=== PATIENT | male | born 1985 | race Caucasian/White ===

== ENCOUNTER → 2023-03-07 15:42 | Outpatient (CLI) | payer BC, SELFPAY ==
--- NOTE | 2023-03-07 | DI.RAD.S_ITS ---
PROCEDURE: XR CHEST 2V INDICATIONS: ABNORMAL LEVELS TECHNIQUE: 2 views of the chest were acquired. COMPARISON: None. FINDINGS: Surgical changes and devices: None. Lungs and pleura: Lungs are clear. No pleural effusions or pneumothorax. Mediastinum: Mediastinal contours are normal. Heart size is normal. Bones and chest wall: No suspicious bony abnormalities. Soft tissues appear unremarkable. IMPRESSION: No acute process. Dictated by: Debora Miranda M.D. on 03/07/2023 at 16:34 Approved by: Debora Miranda M.D. on 03/07/2023 at 16:34
== END ==
PROVIDERS: PCP Registered Nurse; Referring Provider Registered Nurse; Visit Provider Registered Nurse
DX: R74.8 Abnormal levels of other serum enzymes (principal); M94.0 Chondrocostal junction syndrome [Tietze]
CPT/HCPCS: 71046

== ENCOUNTER → 2023-06-30 08:39 | Outpatient (CLI) | payer BC, SELFPAY ==
[2023-06-30 10:05] LABS: Semen Sperm Prescence Post-Vas Present (ABSENT)
== END ==
PROVIDERS: PCP Registered Nurse; Referring Provider Specialist; Visit Provider Specialist
DX: Z98.52 Vasectomy status (principal)
CPT/HCPCS: 89321

== ENCOUNTER → 2023-07-21 17:09 | Outpatient (CLI) | payer BC, SELFPAY ==
--- NOTE | 2023-07-21 | DI.RAD.S_ITS ---
PROCEDURE: XR ANKLE RT MIN 3V INDICATIONS: RT ANKLE PAIN TECHNIQUE: 3 views of the ankle were acquired. COMPARISON: None. FINDINGS: Bones: No fractures or dislocations. Ankle mortise is normally aligned. No suspicious bony lesions. Soft tissues: No tibiotalar joint effusion. Achilles tendon appears normal. IMPRESSION: No definite radiographic abnormality. If pain persists with conservative management, consider cross sectional imaging such as CT or MRI for further assessment. Dictated by: Spencer Pérez [facility] Interpreted: Danny Drew MD on 07/21/2023 at 19:51 Transcribed by: JASON on 07/22/2023 at 8:16 Approved by: Danny Drew M.D. on 07/22/2023 at 18:14
== END ==
PROVIDERS: PCP Registered Nurse; Referring Provider Registered Nurse; Visit Provider Registered Nurse
DX: M25.571 Pain in right ankle and joints of right foot (principal)
CPT/HCPCS: 73610

== ENCOUNTER → 2024-03-10 16:04 | Outpatient (ROUT) | payer BC, SELFPAY ==
[2024-03-10 16:19] LABS: Semen Sperm Prescence Post-Vas Absent (ABSENT)
== END ==
PROVIDERS: PCP Registered Nurse; Visit Provider Registered Nurse
DX: Z98.52 Vasectomy status (principal)
CPT/HCPCS: 89321

== ENCOUNTER 2024-05-28 06:46 | Day surgery (SDC) | payer BC, SELFPAY ==
[2024-05-28] MEDS: LACTATED RINGERS 1,000 ML 42 ML IV (07:10)
[2024-05-28 07:11] VITALS: BP 140/79; PULSE 75; RESP 18; TEMP 36.6; O2SAT 98
--- NOTE | 2024-05-28 07:44 | P.HP_ITS ---
History of Present Illness History of Present Illness Date Patient Seen: 05/28/24 Time Patient Seen: 07:44 Chief complaint: Dx Colonoscopy w/poss bx Narrative: Change in bowel habits, constant pressure to urgency. No family history for colon cancer or IBD [facility] Medical History Encounter for sterilization Sterilization consult History of depression Hx of essential hypertension Social History marital status: occupational status: employed Smoking Status: Current some day smoker alcohol intake: current during the past year weight has: remained stable caffeine: Yes Meds Home Medications and Allergies Home Medications Medication Instructions Recorded Confirmed Type pimecrolimus 1 % topical cream 1 applic topical BID 02/25/24 02/25/24 History sodium,potassium,mag sulfates 17.5 See Rx Instructions PO .COMPLEX 04/29/24 Rx gram-3.13 gram-1.6 gram oral soln #354 mL (Suprep Bowel Prep Kit) Allergies Allergy/AdvReac Type Severity Reaction Status Date / Time No Known Drug Allergies Allergy Unverified 02/25/24 11:28 Review of Systems Review of Systems ROS: Yes All systems reviewed with the patient and are negative except as otherwise documented Exam Vital Signs (past 8 hours): - 05/28/24 07:11 Temperature 98 F Pulse Rate 75 Respiratory Rate 18 Blood Pressure 140/79 Pulse Oximetry 98 Oxygen Delivery Method Room Air Oxygen Delivery Method Room Air Const General: cooperative, healthy appearing and comfortable Nutritional Appearance: average body habitus HENMT Head: normocephalic and atraumatic Eyes General: appearance normal, both eyes and all related structures Sclera: sclerae normal Neck Neck: trachea midline Chest Chest: normal inspection of the chest Resp Effort & Inspection: normal respiratory effort and able to speak in complete sentences Cardio Rate: regular rate Rhythm: regular rhythm GI Inspection: non-distended Palpation: soft Back/Spine/Pelvis Back: normal to inspection Skin General: no rashes or lesions noted Neuro Cognition: normal cognition Psych Mental Status: mental status grossly normal Judgment: judgment good Assessment & Plan Assessment & Plan narrative: Increased urgency Colonoscopy with anesthesia Time-Based Coding :: [TOTAL MINUTES] spent with patient and on the chart (including review of chart, obtaining history, exam, reviewing outside data, placing orders, documenting exam and treatment plan, and counseling patient) on [DATE].
--- NOTE | 2024-05-28 07:59 | PM.OP.COLON ---
Operative Date/Time/Diagnoses Date of procedure: 05/28/24 Time of procedure: 07:59 Pre-op diagnosis: Fecal urgency Post-op diagnosis: same Procedure & Clinicians Study performed: Colonoscopy with anesthesia Same procedure as scheduled: Yes Indications: Fecal urgency Surgeon: Celina Gore Procedure Notes Procedure in detail: Preop diagnosis: Fecal urgency Postop diagnosis: Same Operative procedure: Colonoscopy with anesthesia Surgeon: Jessica Gore MD Findings: Normal colonoscopy. No polyps, no diverticulosis. No masses her abnormalities in the rectum Procedure: Patient placed in lateral position. Rectal exam performed showing normal tone no masses. Colonoscope inserted into the rectum and advanced to ileocecal valve with minimal difficulty. Insufflation extraction scope including retroflex the rectum was performed. Impression: Normal colonoscopy. No polyps, no diverticulosis. No etiology for his fecal urgency Plan: Repeat colonoscopy in 10 years in accordance to colon cancer surveillance Specimen(s): none sent Complications: none Post-procedure Recommendations: Colonoscopy in 10 years Follow up: as needed Disposition: PACU
[2024-05-28 08:03] VITALS: BP 119/77; PULSE 79; RESP 14; TEMP 36.2; O2SAT 97
[2024-05-28 08:08] VITALS: BP 114/73; PULSE 70; RESP 13; O2SAT 97
[2024-05-28 08:13] VITALS: BP 115/72; PULSE 64; RESP 12; O2SAT 97
[2024-05-28 08:14] VITALS: BP 114/76; PULSE 69; RESP 13; TEMP 36.2; O2SAT 96
== END 2024-05-28 08:26 | disposition home or self-care (01) ==
PROVIDERS: PCP Registered Nurse; Referring Provider Surgery; Visit Provider Surgery
PROC: 0DJD8ZZ Inspection of Lower Intestinal Tract, Via Natural or Artificial Opening Endoscopic (ICD-10-PCS; CPT 45378; principal; 2024-05-28 07:45)
DX: R15.2 Fecal urgency (principal)
CPT/HCPCS: 45378; J2704

== ENCOUNTER → 2025-04-14 16:17 | Outpatient (CLI) | payer BC, SELFPAY ==
[2025-04-14 17:45] LABS: Add Manual Diff / Slide Review NO; Hematocrit 43.3 % (41-53); Hemoglobin 15.2 g/dL (13.5-17.5); Lymphocytes Absolute Auto 3100 /uL (1100-4500); Mean Corpuscular HGB Conc 35.1 % (30-36); Mean Corpuscular Hemoglobin 30.6 PG (26-34); Mean Corpuscular Volume 87.1 fL (80-100); Platelet Count 214 X10^3/uL (150-400)
[2025-04-14 18:20] LABS: Alanine Aminotransferase 44 IU/L (<50); Albumin 4.6 g/dL (3.5-5.0); Albumin Globulin Ratio 1.5 (1.0-2.8); Alkaline Phosphatase 112 U/L (38-126); Blood Urea Nitrogen 15 mg/dL (9-20); Calcium 9.5 mg/dL (8.4-10.2); Carbon Dioxide 28 mmol/L (22-32); Chloride 104 mmol/L (98-107); Estimated Glomerular Filt Rate > 60 mL/min (>60); Globulin 3.1 g/dL (1.7-4.1); Glucose 105 mg/dL (70-99); HEMOLYSIS < 15 (0-50); Potassium 3.8 mmol/L (3.4-5.1); Sodium 139 mmol/L (137-145); Total Protein 7.7 g/dL (6.3-8.2)
== END ==
PROVIDERS: PCP Registered Nurse
DX: L40.8 Other psoriasis (principal)
CPT/HCPCS: 36415; 80053; 80076; 85025; 86480